=== PATIENT | female | born 1965 | race Caucasian/White ===

== ENCOUNTER 2016-07-23 08:48 | Emergency (ER) | payer BC ==
[2016-07-23 08:54] VITALS: BP 125/70
[2016-07-23] MEDS ORDERED: Amoxicillin/Clavulanate TAB* 875 MG PO ONE (09:27)
--- NOTE | 2016-07-23 09:30 | ED ---
Bite Injury/Animal - HPI Summary HPI Summary: 50F presents with right wrist pain s/p dog bite two days ago. She states the neighbors dog bite her and that the dogs vaccines where up to date. She states her tetanus is up to date. She denies any pain into her fingers. The wrist is edematous but the bites do not have any discharge from them. She states she cleaned them with alcohol after it occurred. She is right handed. She denies any fevers. - History of Current Complaint Chief Complaint: EDAnimalBite Stated Complaint: DOG BITE OR SCRATCHES Time Seen by Provider: 07/23/16 09:13 Pain Intensity: 2 PMH/Surg Hx/FS Hx/Imm Hx Endocrine/Hematology History: Denies: Hx Anticoagulant Therapy Cardiovascular History: Denies: Hx Hypertension Infectious Disease History: No Infectious Disease History: Denies: Traveled Outside the [place] in Last 30 Days - Family History Known Family History: Positive: Hypertension - Social History Alcohol Use: Occasionally Substance Use Type: Reports: None Smoking Status (MU): Never Smoked Tobacco Review of Systems Negative: Fever Negative: Chest Pain Negative: Shortness Of Breath Positive: Myalgia - wrist right Positive: Other All Other Systems Reviewed And Are Negative: Yes Physical Exam Triage Information Reviewed: Yes Vital Signs On Initial Exam: Initial Vitals Temp Pulse Resp BP Pulse Ox 97.7 F 80 16 125/70 100 07/23/16 08:50 07/23/16 08:50 07/23/16 08:50 07/23/16 08:50 07/23/16 08:50 Vital Signs Reviewed: Yes Appearance: Positive: Well-Appearing Skin: Positive: Other - 3cm by 1cm laceration on dorsal aspect of right wrist and 1/2 cm laceration on radial side of right wrist Head/Face: Positive: Normal Head/Face Inspection Eyes: Positive: Normal, Conjunctiva Clear Respiratory/Lung Sounds: Positive: Clear to Auscultation, Breath Sounds Present Cardiovascular: Positive: Normal, RRR Musculoskeletal: Positive: Edema Right - wrist, Other - no pain with flexion of fingers or pain along flexor tendon, good pulses, warm to touch over right wrist Diagnostics - Vital Signs Vital Signs Temp Pulse Resp BP Pulse Ox 07/23/16 08:50 97.7 F 80 16 125/70 100 - Laboratory Lab Statement: Any lab studies that have been ordered have been reviewed, and results considered in the medical decision making process. Bite Injury Course/Dx - Course Course Of Treatment: 50F presents with dog bite two days ago that became infection. dog was neighbors and immunizations up to date so no rabies needed. tetanus was up to date. no evidence of flexor tendon involvement so not suspect progressed to flexor tendosynovitis. wrist is warm and tender to touch, limited ROM due to pain, ordered dose of augmentin but patient never recieved it as left before could be given, ordered rest to pharmacy. told if flexor tendon became involved to return to ED. 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
== END 2016-07-23 10:02 | disposition home or self-care (01) ==
LOC: ED 08:48
DX: L03.90 Cellulitis, unspecified (principal); S61.551A Open bite of right wrist, initial encounter; M25.531 Pain in right wrist; W54.0XXA Bitten by dog, initial encounter; Y93.9 Activity, unspecified; Y92.9 Unspecified place or not applicable
CPT/HCPCS: 99281

== ENCOUNTER 2017-05-03 12:30 | Emergency (ER) | payer BC ==
[2017-05-03] MEDS ORDERED: Acyclovir* 400 MG TAB PO ONE (13:27)
--- NOTE | 2017-05-03 13:51 | ED ---
Throat Pain/Nasal Congestion - HPI Summary HPI Summary: Pt here w/ Rt sided facial pain which started last night. This progressed to a sensation of hair being on her lower face/chin on Rt followed by a red, bumpy burning rash this morning. She admits to h/o chix pox as a youth. Has been stressed over the past 1.5 yrs but also working on a deadline project at work today - has not been sleeping well. Denies ocular pain, change in vision, FB sensation as well as hearing changes, ear pain, otorrhea, fever, chills. No new soaps, lotions, meds, detergents, food, rachel's, meds, etc. - History of Current Complaint Chief Complaint: EDFacialInjury Time Seen by Provider: 05/03/17 12:48 Hx Obtained From: Patient - Allergies/Home Medications Allergies/Adverse Reactions: Allergies Allergy/AdvReac Type Severity Reaction Status Date / Time No Known Allergies Allergy Verified 05/03/17 12:44 PMH/Surg Hx/FS Hx/Imm Hx Previously Healthy: Yes Endocrine/Hematology History: Denies: Hx Anticoagulant Therapy Cardiovascular History: Denies: Hx Hypertension Sensory History: Reports: Hx Contacts or Glasses Opthamlomology History: Reports: Hx Contacts or Glasses Psychiatric History: Reports: Hx Anxiety, Hx Depression - wellbutrin, zoloft Infectious Disease History: No Infectious Disease History: Reports: History Other Infectious Disease - chix pox as a youth Denies: Traveled Outside the [place] in Last 30 Days - Family History Known Family History: Positive: Hypertension - Social History Occupation: Employed Full-time Alcohol Use: Rare Hx Substance Use: No Substance Use Type: Reports: None Hx Tobacco Use: No Smoking Status (MU): Never Smoked Tobacco Review of Systems Constitutional: Negative Negative: Fever, Chills, Fatigue Eyes: Negative Negative: Photophobia, Blurred Vision, Diplopia, Drainage, Erythema ENT: Negative Negative: Sore Throat, Ear Ache, Nasal Discharge Cardiovascular: Negative Negative: Chest Pain Respiratory: Negative Negative: Shortness Of Breath, Cough Gastrointestinal: Negative Negative: Abdominal Pain, Vomiting, Diarrhea, Nausea Positive: no symptoms reported Musculoskeletal: Negative Positive: Rash Neurological: Other - Rt side of face was twitching yesterday - not now Positive: Anxious All Other Systems Reviewed And Are Negative: Yes Physical Exam Triage Information Reviewed: Yes Vital Signs On Initial Exam: Initial Vitals Temp Pulse Resp BP Pulse Ox 98.6 F 70 16 116/73 98 05/03/17 12:41 05/03/17 12:41 05/03/17 12:41 05/03/17 12:41 05/03/17 12:41 Vital Signs Reviewed: Yes Appearance: Positive: Well-Appearing, No Pain Distress, Well-Nourished Skin: Positive: Warm - papular erythematous cluster of rash about the Rt corner of mouth, chin and small patch of same over temporal region - no lalitha vesicles/ pustules - TTP, Skin Color Reflects Adequate Perfusion, Dry Head/Face: Positive: Normal Head/Face Inspection Eyes: Positive: Normal, EOMI, ISELA, Conjunctiva Clear, Other: - no lesions observed on sclera/conjunctiva. Negative: Conjunctiva Inflammed, Discharge ENT: Positive: Normal ENT inspection, Hearing grossly normal, Pharynx normal - no lesions in oral cavity, TMs normal - no lesions, no erythema, no hyperemia, no fluid obsered - EAC w/o lesions. Negative: Nasal congestion, Nasal drainage - no nasal lesions Neck: Positive: Supple, Nontender, No Lymphadenopathy Respiratory/Lung Sounds: Positive: Clear to Auscultation, Breath Sounds Present Cardiovascular: Positive: Normal, RRR Musculoskeletal: Positive: Normal, Strength/ROM Intact Neurological: Positive: Normal, Sensory/Motor Intact, Alert, Oriented to Person Place, Time, CN Intact II-III Diagnostics - Vital Signs Vital Signs Temp Pulse Resp BP Pulse Ox 05/03/17 13:39 99.5 F 56 14 115/62 97 05/03/17 12:41 98.6 F 70 16 116/73 98 - Laboratory Lab Statement: Any lab studies that have been ordered have been reviewed, and results considered in the medical decision making process. EENT Course/Dx - Course Course Of Treatment: Pt appears to have HZV along V3 dermatome on Rt. No ocular or tympanic involvement. Provided with acyclovir in ED and e-rx'd along w/ gabapentin for pain. Education about treatment, transmission, course of illness and possible poor outcomes - danger s/sx of when to return to ED reviewed. Pt agrees w/ plan and will f/u w/ PCP this week. - Diagnoses Provider Diagnoses: Herpes zoster Discharge - Discharge Plan Condition: Stable Disposition: HOME Prescriptions: Acyclovir* [Zovirax 400 MG TAB*] 800 mg PO QID #35 tab Gabapentin CAP(*) [Neurontin 300 CAP(*)] 300 mg PO TID #45 cap Patient Education Materials: Mary (ED) Forms: *Work Release Referrals: Luigi Larios MD [Primary Care Provider] - Additional Instructions: Complete acyclovir You may take gabapentin for pain - 1 300mg tab today - if this controls pain, you may continue just 1 per day. If this does not control the pain, you may advance to 1 tab every 12 hours tomorrow. If this still does not control pain, you may advance to 1 tab every 8 hours on the 3rd day and continue until a taper down dose is discussed with your PCP. Follow-up with PCP this week - call to schedule an appointment Thursday. *If you develop eye or ear pain, foreign body sensation, decreased hearing, dizziness, headache, change in vision, return to ED
[2017-05-03 14:05] VITALS: BP 00/00
== END 2017-05-03 14:05 | disposition home or self-care (01) ==
LOC: ED 12:30
DX: B02.9 Zoster without complications (principal); R21 Rash and other nonspecific skin eruption
CPT/HCPCS: 99282; A9270-GY